=== PATIENT | male | born 1995 | race Caucasian/White ===

== ENCOUNTER 2020-09-24 14:32 | Emergency (ER) | payer OTHER ==
[~2020-09-24] VITALS: Ht 170.2 cm; Wt 95.3 kg
[~2020-09-24 14:32] MED LIST: CLEOCIN HCL150 MG PO; NOHOMEMEDICATIONS; PREDNISONE 20 M20 M1 PO
[2020-09-24 15:51] VITALS: BP 170/99
== END 2020-09-24 15:51 | disposition home or self-care (01) ==
LOC: M.ERS 14:32
DX: U07.1 COVID-19 (principal)

== ENCOUNTER 2020-12-05 21:37 | Emergency (ER) | payer OTHER ==
[~2020-12-05] VITALS: Ht 172.7 cm; Wt 93.0 kg
[2020-12-05 22:46] LABS: INFLUENZA A ANTIGEN Negative (Negative); INFLUENZA B ANTIGEN Negative (Negative)
[2020-12-05 23:08] VITALS: BP 143/89
== END 2020-12-05 23:08 | disposition home or self-care (01) ==
LOC: M.ERS 21:37
PROVIDERS: Emergency Medicine
DX: R05 Cough (principal); R09.89 Other specified symptoms and signs involving the circulatory and respiratory systems; Z20.828 Contact with and (suspected) exposure to other viral communicable diseases